=== PATIENT | female | born 1965 | race Caucasian/White ===

== ENCOUNTER 2016-05-10 17:52 | Observation (INO) | payer MEDICAID, OTHER ==
[~2016-05-10] VITALS: Ht 162.6 cm; Wt 100.0 kg
[~2016-05-10 17:52] MED LIST: BUSP10 PO; HYDR12.56 PO; LISI-363 PO
[2016-05-10 17:55] VITALS: BP_SYST 220; BP_SYST 232; BP_DIAS 107; BP_DIAS 109; PULSE 72; RESP 15; TEMP 98.2; O2SAT 98
[2016-05-10 19:09] VITALS: RESP 16; O2SAT 98
--- NOTE | 2016-05-10 19:09 | PD ---
HPI Chief Complaint: Cardiac Complaint Time Seen by Provider: 18:53 Travel History International Travel<30 days: No Contact w/Intl Traveler<30days: No Traveled to known affect area: No History of Present Illness HPI 50yo F with PMH of anxiety and HTN (not complaint with medication because of no insurance) presents to the ED with c/o midsternal chest pain with sob for 3-4 days. States pain is intermittent and nonradiating. States she had stress test in [facility] maybe 2 years ago. Pt denies any cig smoking or drugs. States she has been under a lot of stress lately. Denies any vomiting, abdominal pain , focal weakness. Pt also with frontal headache that feels like her migraine like headache while waiting to be seen. She also does not have fioricet. PFSH Past Medical History Anxiety: Yes Depression: Yes Cardiovascular Problems: Yes (HTN) Diminished Hearing: No Hypertension: Yes Musculoskeletal: Yes (tendonitis ) Migraines: Yes Tetanus Vaccination: > 5 Years Influenza Vaccination: No ?: Not LMP: 05/03/16 : 0 Para: 0 Miscarriage: 0 : 0 Past Surgical History Surgical History: No Previous Surgery Social History Alcohol Use: Yes (ocassionally) Tobacco Use: No Substance Use: No Allergies-Medications (Allergen,Severity, Reaction): Coded Allergies: Codeine (Verified Adverse Reaction, Severe, abdominal pain, 05/10/16) Reported Meds & Prescriptions Reported Meds & Active Scripts Active Review of Systems Except as stated in HPI: all other systems reviewed are Neg Physical Exam Narrative GENERAL: 50yo F in mild distress. SKIN: Focused skin assessment warm/dry. HEAD: Atraumatic. Normocephalic. EYES: Pupils equal and round. No scleral icterus. No injection or drainage. ENT: No nasal bleeding or discharge. Mucous membranes pink and moist. NECK: Trachea midline. No JVD. CARDIOVASCULAR: Regular rate and rhythm. No murmur appreciated. RESPIRATORY: No accessory muscle use. Clear to auscultation. Breath sounds equal bilaterally. GASTROINTESTINAL: Abdomen soft, non-tender, nondistended. MUSCULOSKELETAL: No obvious deformities. No clubbing. No cyanosis. No edema. NEUROLOGICAL: Awake and alert. No obvious cranial nerve deficits. Motor grossly within normal limits. Normal speech. Data Data Last Documented VS Vital Signs Date Time Temp Pulse Resp B/P Pulse Ox O2 Delivery O2 Flow Rate FiO2 05/10/16 19:11 72 16 175/81 98 Room Air 05/10/16 17:55 98.2 Orders Electrocardiogram (05/10/16 ) Basic Metabolic Panel (Bmp) (05/10/16 19:04) Ckmb (Isoenzyme) Profile (05/10/16 19:04) Complete Blood Count With Diff (05/10/16 19:04) Magnesium (Mg) (05/10/16 19:04) Prothrombin Time / Inr (Pt) (05/10/16 19:04) Act Partial Throm Time (Ptt) (05/10/16 19:04) Troponin I (05/10/16 19:04) Chest, Single Ap (05/10/16 19:04) Ecg Monitoring (05/10/16 19:04) Bilateral Bp Monitoring (05/10/16 19:04) Iv Access Insert/Monitor (05/10/16 19:04) Oximetry (05/10/16 19:04) Oxygen Administration (05/10/16 19:04) Aspirin (Aspirin) (05/10/16 19:15) Sodium Chloride 0.9% Flush (Ns Flush) (05/10/16 19:15) Ondansetron Inj (Zofran Inj) (05/10/16 19:15) Admit Order (Ed Use Only) (05/10/16 21:19) Labs Laboratory Tests Test 05/10/16 18:55 White Blood Count 8.4 TH/MM3 Red Blood Count 4.20 MIL/MM3 Hemoglobin 11.6 GM/DL Hematocrit 35.7 % Mean Corpuscular Volume 85.1 FL Mean Corpuscular Hemoglobin 27.7 PG Mean Corpuscular Hemoglobin 32.6 % Concent Red Cell Distribution Width 13.4 % Platelet Count 319 TH/MM3 Mean Platelet Volume 7.7 FL Neutrophils (%) (Auto) 57.0 % Lymphocytes (%) (Auto) 29.4 % Monocytes (%) (Auto) 10.2 % Eosinophils (%) (Auto) 2.1 % Basophils (%) (Auto) 1.3 % Neutrophils # (Auto) 4.8 TH/MM3 Lymphocytes # (Auto) 2.5 TH/MM3 Monocytes # (Auto) 0.9 TH/MM3 Eosinophils # (Auto) 0.2 TH/MM3 Basophils # (Auto) 0.1 TH/MM3 CBC Comment DIFF FINAL Differential Comment Prothrombin Time 11.1 SEC Prothromb Time International 1.0 RATIO Ratio Activated Partial 27.1 SEC Thromboplast Time Sodium Level 138 MEQ/L Potassium Level 3.5 MEQ/L Chloride Level 103 MEQ/L Carbon Dioxide Level 25.5 MEQ/L Anion Gap 10 MEQ/L Blood Urea Nitrogen 9 MG/DL Creatinine 0.76 MG/DL Estimat Glomerular Filtration 81 ML/MIN Rate Random Glucose 89 MG/DL Calcium Level 8.5 MG/DL Magnesium Level 2.3 MG/DL Total Creatine Kinase 60 U/L Troponin I 0.02 NG/ML [facility] Medical Decision Making Medical Screen Exam Complete: Yes Emergency Medical Condition: Yes Interpretation(s) EKG: NSR 67bpm. LAD. TWI V2, V3. Differential Diagnosis Anxiety vs. ACS Narrative Course 50yo F with atypical chest pain. Pt has risks factors such as uncontrolled HTN and has not had any cardiac stress test recently. Headache seems benign and started while she was waiting. No focal neurologic deficits. Improved after toradol. Labs reviewed, no leukocytosis. Troponin negative. CXR negative. Will admit to chest pain center for serial EKG and cardiac enzyme. Diagnosis Primary Impression: Chest pain Qualified Code: R07.9 - Chest pain, unspecified type Admitting Information Admitting Physician Requests: Observation Scripts Doxycycline Hyclate 100 Mg Glf612 Mg PO BID 10 Days Ref 0 Prov:Gavino House 05/11/16 Lisinopril 10 Mg Tab10 Mg PO DAILY #30 TAB Ref 0 Prov:Gavino House 05/11/16 Kaia Sharma DO May 10, 2016 19:08
[2016-05-10 19:11] VITALS: BP 175/81; PULSE 72; RESP 16; O2SAT 98
[2016-05-10] MEDS ORDERED: ASPIRIN 325 MG TAB PO ONE (19:15)
[2016-05-10] MEDS ORDERED: ONDANSETRON HCL 4 MG/2 ML VIAL IV PUSH ONE (19:15)
[2016-05-10] MEDS ORDERED: SODIUM CHLORIDE 0.9% FLUSH 10 ML FLUSH IVF PRN (19:15)
[2016-05-10 19:16] LABS: AUTOMATED NEUTROPHIL # 4.8 TH/MM3 (1.8-7.7); BASOPHIL # 0.1 TH/MM3 (0-0.2); BASOPHIL % 1.3 % (0.0-2.0); EOSINOPHIL # 0.2 TH/MM3 (0-0.4); EOSINOPHIL % 2.1 % (0.0-4.0); HEMATOCRIT 35.7 % (35.0-46.0); HEMO FLAGS DIFF FINAL; LYMPH % 29.4 % (9.0-44.0); LYMPHOCYTE # 2.5 TH/MM3 (1.0-4.8); MEAN CELL VOLUME 85.1 FL (80.0-100.0); MEAN CORPUSCULAR HEMOGLOBIN 27.7 PG (27.0-34.0); MEAN CORPUSCULAR HGB CONC 32.6 % (32.0-36.0); MONO % 10.2 % (0.0-8.0); PLATELET COUNT 319 TH/MM3 (150-450); RED CELL DISTRIBUTION WIDTH 13.4 % (11.6-17.2); WHITE BLOOD COUNT 8.4 TH/MM3 (4.0-11.0)
[2016-05-10 19:23] LABS: APTT (PATIENT) 27.1 SEC (24.3-30.1); PROTHROMBIN TIME - PATIENT 11.1 SEC (9.8-11.6)
--- NOTE | 2016-05-10 19:27 | RADRPT ---
EXAM DATE/TIME: 05/10/2016 19:18 [facility] COMPARISON: No previous studies available for comparison. INDICATIONS : Chest pain. MEDICAL HISTORY : None. SURGICAL HISTORY : None. ENCOUNTER: Initial ACUITY: 2 days PAIN SCORE: 6/10 LOCATION: middle chest. FINDINGS: A single view of the chest demonstrates the lungs to be symmetrically aerated without evidence of mas s, infiltrate or effusion. The cardiomediastinal contours are unremarkable. Osseous structures are intact. CONCLUSION: No acute disease. Cheng Joe MD on May 10, 2016 at 19:26 Board Certified Radiologist. This report was verified electronically.
[2016-05-10 19:32] LABS: BICARBONATE 25.5 MEQ/L (21.0-32.0); MAGNESIUM 2.3 MG/DL (1.5-2.5); POTASSIUM 3.5 MEQ/L (3.5-5.1)
[2016-05-10 23:28] VITALS: BP 152/76; PULSE 67; RESP 14; TEMP 98.4; O2SAT 98
[2016-05-10] MEDS ORDERED: KETOROLAC TROMETHAMINE 30 MG/ML (IVP) VIAL IV PUSH ONE (23:45)
[2016-05-11] VITALS (8 sets, daily range): BP systolic 14–175; BP diastolic 52–95; PULSE 56–66; RESP 16–18; TEMP 97.5–98.4; O2SAT 94–98
[2016-05-11] MEDS ORDERED: diphenhydrAMINE HCL 25 MG CAP PO ONE (09:30)
[2016-05-11] MEDS ORDERED: LISINOPRIL 10 MG TAB PO SCH (09:30)
[2016-05-11] MEDS ORDERED: FAMOTIDINE 20 MG TAB PO ONE (09:30)
[2016-05-11] MEDS ORDERED: REGADENOSON INJ 0.4 MG/5 ML SYR ONE (10:54)
--- NOTE | 2016-05-11 12:04 | RADRPT ---
EXAM DATE/TIME: 05/11/2016 10:11 [facility] COMPARISON: No previous studies available for comparison. INDICATIONS : Midsternal chest pain with dyspnea for 4 days. Angina. DOSE: 35 mCi Tc99m Myoview at stress. 11 mCi Tc99m Myoview at rest. 0.4 mg Lexiscan STRESS SYMPTOMS: Chest tightness. EJECTION FRACTION: 62% MEDICAL HISTORY : Hypertension. SURGICAL HISTORY : None. ENCOUNTER: Initial ACUITY: 4 - 6 days PAIN SCALE: 6/10 LOCATION: Midsternal chest TECHNIQUE: The patient underwent pharmacologic stress with infusion of prescribed dose. Continuous ECG tracing was monitored during stress. Gated SPECT imaging was performed after stress and conventional SPECT i maging was performed at rest. The examination was performed on a SPECT/CT scanner, both attenuation and non-corrected datasets were reviewed. FINDINGS: DISTRIBUTION: The maximum perfused segment at stress is in the anterior wall. PERFUSION STUDY: The pattern of perfusion at stress is within normal limits. GATED STUDY: There is intact wall motion and thickening without hypokinetic or dyskinetic segments. CONCLUSION: No reversible perfusion defects. No focal wall motion abnormalities. RISK CATEGORY: 1 - Low Risk. Brandon Gutierrez MD on May 11, 2016 at 11:58 Board Certified Radiologist. This report was verified electronically.
--- NOTE | 2016-05-11 12:09 | HHI.HP ---
HPI Primary Care Physician No Primary Care Physician Chief Complaint Chest pain History of Present Illness This is a 50-year-old female that presents to the ED via private vehicle complaining of 3 days of constant chest tightness. Nothing seems to worsen or improve it. She also has had some shortness breath intermittently with it as well. This is not exertionally related. Cannot recall prior cardiac workup. She has history of hypertension but has not taken medications or a long time saying she does not have a local doctor. Also patient is complaining of a rash to her right lower leg. She tried cortisone cream and has not helped. Review of Systems General: Patient denies fevers, chills recent, and recent travel HEENT: Patient denies headache, sore throat, difficulty swallowing. Cardiovascular: Has the chest discomfort as mentioned above. Denies sensation of heart beating rapidly or irregularly. No syncope. Denies diaphoresis. Respiratory: Intermittent shortness of breath. Denies inspirational chest discomfort. Denies coughing wheezing or hemoptysis. GI: Patient denies nausea, vomiting, diarrhea, abdominal pain, bloody stools. Musculoskeletal: Patient denies joint pain or edema. Denies calf pain or edema. Neurovascular: Patient denies numbness, tingling, weakness in extremities. Denies headache. Endocrine: Denies polyuria and polydipsia. Hematologic: Denies easy bruising. Skin: Complains of a rash to right lower leg. It itches as well. Does not recall any bites. Past Family Social History Allergies: Coded Allergies: Codeine (Verified Adverse Reaction, Severe, abdominal pain, 05/10/16) Past Medical History Hypertension and medication noncompliance. Denies hyperlipidemia and diabetes and known CAD. Past Surgical History Noncontributory. Reported Medications Reported Meds & Active Scripts Active No Active Prescriptions or Reported Medications Active Ordered Medications Current Medications Medications (Trade) Dose Ordered Sig/Delaney Route Start Time Stop Time Status Last Admin (NS Flush) 2 ml UNSCH PRN IVF 05/10/16 19:15 (Prinivil) 10 mg DAILY PO 05/11/16 09:30 05/11/16 11:49 Family History Denies family history of CAD. Social History Patient is a nonsmoker. Rarely has alcohol. Denies illicit drugs. Physical Exam Vital Signs Vital Signs Date Time Temp Pulse Resp B/P Pulse Ox O2 Delivery O2 Flow Rate FiO2 05/11/16 11:48 98.4 66 16 175/95 97 05/11/16 08:00 59 05/11/16 07:45 98.0 61 18 159/88 94 05/11/16 04:15 97.5 56 18 153/76 95 05/11/16 03:37 56 05/11/16 01:04 98.1 63 18 163/77 94 05/11/16 00:51 18 05/11/16 00:30 62 16 14/52 99 05/11/16 00:21 98 05/10/16 23:28 98.4 67 14 152/76 98 Room Air 05/10/16 19:11 72 16 175/81 98 Room Air 05/10/16 19:09 98 Room Air 05/10/16 19:09 16 98 Room Air 05/10/16 18:46 70 17 99 Room Air 05/10/16 17:55 232/109 05/10/16 17:55 98.2 72 15 220/107 98 Physical Exam GENERAL: This is a well-nourished, well-developed patient, in no apparent distress. Patient speaks in clear complete sentences. Patient is pleasant. HEENT: Head is atraumatic and normocephalic. Neck is supple without lymphadenopathy and trachea is midline. No JVD or carotid bruits. CARDIOVASCULAR: Regular rate and rhythm without murmurs, gallops, or rubs. RESPIRATORY: Clear to auscultation. Breath sounds equal bilaterally. No wheezes , rales, or rhonchi. Chest wall is nontender. No use of accessory muscles. GASTROINTESTINAL: Abdomen is nontender, nondistended. Abdomen soft. No obvious pulsatile mass or bruit. No CVA tenderness. Strong femoral pulses bilaterally. Normal bowel sounds in all quadrants. MUSCULOSKELETAL: Patient is moving upper and lower extremities freely. No calf tenderness or edema, no Homans sign. Strong pulses in upper and lower extremities. NEUROLOGICAL: Patient is alert and oriented. Cranial nerves 2-12 are grossly intact. No focal deficits and speech is clear. SKIN: There is some erythema along the distal aspect of the right lower leg. It is warm. No edema. Measures approximately 5 x 12 cm. No fluctuance or induration. Laboratory Laboratory Tests Test 05/10/16 05/10/16 05/11/16 18:55 23:20 03:02 White Blood Count 8.4 Red Blood Count 4.20 Hemoglobin 11.6 Hematocrit 35.7 Mean Corpuscular Volume 85.1 Mean Corpuscular Hemoglobin 27.7 Mean Corpuscular Hemoglobin 32.6 Concent Red Cell Distribution Width 13.4 Platelet Count 319 Mean Platelet Volume 7.7 Neutrophils (%) (Auto) 57.0 Lymphocytes (%) (Auto) 29.4 Monocytes (%) (Auto) 10.2 Eosinophils (%) (Auto) 2.1 Basophils (%) (Auto) 1.3 Neutrophils # (Auto) 4.8 Lymphocytes # (Auto) 2.5 Monocytes # (Auto) 0.9 Eosinophils # (Auto) 0.2 Basophils # (Auto) 0.1 CBC Comment DIFF FINAL Differential Comment Prothrombin Time 11.1 Prothromb Time International 1.0 Ratio Activated Partial 27.1 Thromboplast Time Sodium Level 138 Potassium Level 3.5 Chloride Level 103 Carbon Dioxide Level 25.5 Anion Gap 10 Blood Urea Nitrogen 9 Creatinine 0.76 Estimat Glomerular Filtration 81 Rate Random Glucose 89 Calcium Level 8.5 Magnesium Level 2.3 Total Creatine Kinase 60 50 53 Troponin I 0.02 0.02 0.02 Result Diagram: 05/10/16185405/10/161854 Imaging Last 24 hours Impressions Chest X-Ray 05/10/16 1904 Signed Impressions: Service Date/Time: Tuesday, May 10, 2016 19:18 - CONCLUSION: No acute disease. Cheng Joe MD Course EKGs have been sinus rhythm to sinus bradycardia, there are nonspecific T-wave changes. Assessment and Plan Assessment and Plan * Chest pain: Patient had serial cardiac enzymes and EKGs for ruling out purposes. She was seen by Dr. Hill of cardiology in the chest pain center and will undergo a Lexiscan myocardial perfusion stress test. She will likely be discharged home if her stress test were to be nonischemic. * Hypertension: Patient be given a prescription of lisinopril and she needs to fill it and uses medication. She is a follow-up with primary care physician to continue refills. * Cellulitis: Patient was given a prescription of doxycycline. Patient is agreeable to this plan. She is stable at this time. Gavino House May 11, 2016 12:09
[2016-05-11] MEDS ORDERED: DOXY100C PO (12:11)
[2016-05-11] MEDS ORDERED: LISI10TA3 PO (12:11)
--- NOTE | 2016-05-11 12:12 | HHI.DCPOC ---
Discharge Care Plan Diagnosis: (1) Chest pain (2) Hypertension (3) Cellulitis Goals to Promote Your Health * To prevent worsening of your condition and complications * To maintain your health at the optimal level Directions to Meet Your Goals Take your medications as prescribed Follow your dietary instruction Follow activity as directed Keep your appointments as scheduled Take your immunizations and boosters as scheduled If your symptoms worsen call your PCP, if no PCP go to Urgent Care Center or Emergency Room Smoking is Dangerous to Your Health. Avoid second hand smoke Call the 24-hour hour crisis hotline for domestic abuse at [facility] May 11, 2016 12:12
--- NOTE | 2016-05-11 14:28 | EKG ---
Date Performed: 05/11/2016 Time Performed: 01:58:17 PTAGE: 50 years EKG: SINUS BRADYCARDIA POSSIBLE LEFT ATRIAL ENLARGEMENT POSSIBLE LEFT VENTRICULAR HYPERTROPHY NO NSPECIFIC T-WAVE ABNORMALITY ABNORMAL ECG Since PREVIOUS TRACING , no significant change noted PREVIOUS TRACIN05/10/2016 22.54 DOCTOR: Mara Hill Interpretating Date/Time 05/11/2016 14:26:47
--- NOTE | 2016-05-11 14:29 | EKG ---
Date Performed: 05/10/2016 Time Performed: 22:54:53 PTAGE: 50 years EKG: ECTOPIC ATRIAL RHYTHM VOLTAGE CRITERIA FOR LVH INFERIOR MYOCARDIAL INFARCTION MODERATE T-WA VE ABNORMALITY, CONSIDER ANTERIOR ISCHEMIA ABNORMAL ECG Since PREVIOUS TRACING , no significant change noted PREVIOUS TRACIN05/10/2016 18.04 DOCTOR: Mara Hill Interpretating Date/Time 05/11/2016 14:27:53
--- NOTE | 2016-05-11 14:32 | EKG ---
Date Performed: 05/10/2016 Time Performed: 18:04:05 PTAGE: 50 years EKG: Sinus rhythm NONSPECIFIC T-WAVE ABNORMALITY BORDERLINE ECG Since PREVIOUS TRACING , no significant change noted PREVIOUS TRACIN01/01/2010 00.27 DOCTOR: Mara Hill Interpretating Date/Time 05/11/2016 14:30:46
--- NOTE | 2016-05-11 14:40 | TR ---
Date Performed: 05/11/2016 Time Performed: 10:49:36 DOCTOR: Mara Hill DRUG LIST: CLINICAL HISTORY: CHEST PAIN REASON FOR TEST: REASON FOR ENDING: OBSERVATION: CONCLUSION: Lexiscan stress test was performed under standard four minute protocol. Radionuclid e was injected one minute prior to ending the test. No electrocardiographic abormalities were present to suggest ischemia. Nuclear imaging and interpretation are pending. COMMENTS:
== END 2016-05-11 15:35 | disposition home or self-care (01) ==
LOC: NEPA 17:52 → NEDA 21:21 → NEPHCDU 05-11 00:33
PROVIDERS: ADMIT Internal Medicine Cardiovascular Disease; ATTEND Internal Medicine Cardiovascular Disease
DX: R07.89 Other chest pain (principal); I10 Essential (primary) hypertension; F41.9 Anxiety disorder, unspecified; F32.9 Major depressive disorder, single episode, unspecified; L03.90 Cellulitis, unspecified; Z88.5 Allergy status to narcotic agent; Z79.899 Other long term (current) drug therapy
CPT/HCPCS: 71010; 78452; 80048; 82550; 83735; 84484; 85025; 85610; 85730; 93005; 93017; 96374; 99285; A9502; G0378; J1885; J2405; J2785

== ENCOUNTER 2016-06-30 19:54 | Emergency (ER) | payer MEDICAID ==
[~2016-06-30] VITALS: Ht 162.6 cm; Wt 90.0 kg
[~2016-06-30 19:54] MED LIST changes: -BUSP10 PO; +DOXY100C PO; -HYDR12.56 PO; -LISI-363 PO; +LISI10TA3 PO
[2016-06-30 19:56] VITALS: BP 221/105; PULSE 83; RESP 15; TEMP 99.7; O2SAT 97
[2016-06-30 21:00] VITALS: BP 208/89
[2016-06-30] MEDS ORDERED: TUSSSUS2 PO (21:06)
--- NOTE | 2016-06-30 21:06 | PD ---
HPI . cold Chief Complaint: Cold / Flu Symptoms Time Seen by Provider: 20:41 Travel History International Travel<30 days: No Contact w/Intl Traveler<30days: No Traveled to known affect area: No History of Present Illness HPI Patient presents with a 5 day history of cold symptoms. She is complaining with rhinorrhea, sore throat, fever, headache, cough and chest pain associated with coughing. She states that she has not noticed any exacerbating or relieving factors. She states she has tried DayQuil, NyQuil and Tussin DM without relief of her symptoms. She is complaining of pain rated 10/10. [facility] Past Medical History Anxiety: Yes Depression: Yes Cardiovascular Problems: Yes (HTN) Diminished Hearing: No Hypertension: Yes Musculoskeletal: Yes (tendonitis ) Migraines: Yes ?: Not : 0 Para: 0 Miscarriage: 0 : 0 Social History Alcohol Use: No Tobacco Use: No Substance Use: No Allergies-Medications (Allergen,Severity, Reaction): Coded Allergies: Codeine (Verified Adverse Reaction, Severe, abdominal pain, 06/30/16) Reported Meds & Prescriptions Reported Meds & Active Scripts Active Lisinopril 10 Mg Tab 10 Mg PO DAILY Review of Systems Except as stated in HPI: all other systems reviewed are Neg General / Constitutional: Positive: Fever, Chills HENT: Positive: Sore Throat, Rhinorrhea, Congestion Cardiovascular: Positive: Chest Pain or Discomfort Respiratory: Positive: Cough Gastrointestinal: Positive: Nausea, Vomiting, Diarrhea Genitourinary: No: Urgency, Frequency, Dysuria Physical Exam Narrative GENERAL: Patient is awake and alert and in no acute distress. SKIN: Warm and dry. HEAD: Atraumatic. Normocephalic. EYES: Pupils equal and round. Extraocular movements are intact. There is no conjunctival injection or discharge. ENT: No nasal bleeding or discharge. Mucous membranes pink and moist. TMs are shiny denise with good light reflexes bilaterally. Heart no has minimal edema of the nasal mucosa with some associated clear rhinorrhea. Oropharynx has no erythema or tonsillar enlargement. There is no exudate. NECK: Trachea midline. Neck is supple with no cervical lymphadenopathy. CARDIOVASCULAR: Regular rate and rhythm. Heart sounds are normal. RESPIRATORY: No accessory muscle use. Lungs are clear with full air movement throughout. GASTROINTESTINAL: Abdomen soft, non-tender, nondistended. MUSCULOSKELETAL: No obvious deformities. No edema. NEUROLOGICAL: Awake and alert. No obvious cranial nerve deficits. Motor grossly within normal limits. Normal speech. PSYCHIATRIC: Appropriate mood and affect; insight and judgment normal. Data Data Last Documented VS Vital Signs Date Time Temp Pulse Resp B/P Pulse Ox O2 Delivery O2 Flow Rate FiO2 06/30/16 19:56 99.7 83 15 221/105 97 Room Air [facility] Medical Decision Making Medical Screen Exam Complete: Yes Emergency Medical Condition: Yes Differential Diagnosis Differential diagnosis includes but is not limited to influenza, upper respiratory infection, bronchitis, pneumonia Narrative Course Patient presents complaining with a 5 day history of cold symptoms. She has a benign exam. She will be discharged with symptomatic treatment. Diagnosis Primary Impression: Upper respiratory infection Qualified Code: J06.9 - Viral upper respiratory tract infection Patient Instructions: General Instructions, Upper Respiratory Infection (DC) Additional Instructions: I recommend the use of a Neti Pot. You may use a nasal spray such as Afrin for up to 3 days as needed for nasal congestion. You may take an [id number] antihistamine such as Zyrtec, Radha or Claritin as needed for runny secretions. You may take pseudoephedrine as needed for congestion. You will need to sign for this at the pharmacy. You may take plain Mucinex, 1200 mg twice a day as needed for thick secretions. You may take a cough syrup such as Delsym as needed for cough. Motrin as needed for fever and body aches. Throat lozenges/sprays as needed for sore throat. Warm salt water gargles for sore throat. Hot tea with lemon and honey also helps soothe a sore throat. Med/Other Pt SpecificInfo: Prescription(s) given Scripts Hydrocodone-Chlorpheniramine 12 HR Liq (Tussionex Pennkinetic Ext 12 HR Liq)10- 8 Mg/5 Ml Susp5 Ml PO Q12H PRN (COUGH AND/OR COLD SYMPTOMS) #60 ML Ref 0 Prov:Gloria Kauffman MD 06/30/16 Disposition: 01 DISCHARGE HOME Condition: Stable Gloria Kauffman MD June 30, 2016 21:06
== END 2016-06-30 21:23 | disposition home or self-care (01) ==
LOC: NEPD 19:54
DX: J06.9 Acute upper respiratory infection, unspecified (principal); B97.89 Other viral agents as the cause of diseases classified elsewhere; R50.9 Fever, unspecified; R05 Cough; R07.9 Chest pain, unspecified; I10 Essential (primary) hypertension; Z86.79 Personal history of other diseases of the circulatory system; Z87.39 Personal history of other diseases of the musculoskeletal system and connective tissue; Z86.69 Personal history of other diseases of the nervous system and sense organs; Z86.59 Personal history of other mental and behavioral disorders
CPT/HCPCS: 99283

== ENCOUNTER 2016-10-02 09:56 | Emergency (ER) | payer MEDICAID ==
[~2016-10-02] VITALS: Ht 162.6 cm; Wt 90.0 kg
[~2016-10-02 09:56] MED LIST changes: -DOXY100C PO; +TUSSSUS2 PO
[2016-10-02 09:57] VITALS: BP 189/99; PULSE 89; RESP 15; TEMP 97.9; O2SAT 99
--- NOTE | 2016-10-02 10:08 | PD ---
HPI . left knee pain Chief Complaint: Pain: Acute or Chronic Time Seen by Provider: 10:08 Travel History International Travel<30 days: No Contact w/Intl Traveler<30days: No Traveled to known affect area: No History of Present Illness HPI 51-year-old female with hypertension here with complaints of left knee pain. Patient slipped and fell hitting her left knee last night. She now has difficulty ambulating. She says pain is elicited when bending and flexing. She also has some pain on the medial and lateral sides of her knee. She denies any head injury or loss of consciousness. She rates the pain is severe when ablating. At rest the pain is tolerable. She just would like to know if something is broken. PFSH Past Medical History Anxiety: Yes Depression: Yes Cardiovascular Problems: Yes (HTN) Diminished Hearing: No Hypertension: Yes Musculoskeletal: Yes (tendonitis ) Migraines: Yes ?: Not : 0 Para: 0 Miscarriage: 0 : 0 Social History Alcohol Use: No Tobacco Use: No Substance Use: No Allergies-Medications (Allergen,Severity, Reaction): Coded Allergies: codeine (Unverified Adverse Reaction, Severe, abdominal pain, 10/02/16) Reported Meds & Prescriptions Reported Meds & Active Scripts Active Tussionex Pennkinetic Ext 12 HR Liq (Hydrocodone-Chlorpheniramine 12 HR Liq) 10- 8 Mg/5 Ml Susp 5 Ml PO Q12H PRN Lisinopril 10 Mg Tab 10 Mg PO DAILY Review of Systems General / Constitutional: No: Fever Eyes: No: Visual changes HENT: No: Headaches Cardiovascular: No: Chest Pain or Discomfort Respiratory: No: Shortness of Breath Gastrointestinal: No: Abdominal Pain Genitourinary: No: Dysuria Musculoskeletal: Positive: Pain (left knee pain ) Skin: No Rash Neurologic: No: Weakness Psychiatric: No: Depression Endocrine: No: Polydipsia Hematologic/Lymphatic: No: Easy Bruising Physical Exam Narrative GENERAL: AAO x 3, no acute distress, Well-nourished, well-developed patient. SKIN: Warm and dry. No visible rashes or bruising. HEAD: Normocephalic and atraumatic. EYES: No scleral icterus. No injection or drainage. ENT: No nasal drainage noted. Mucous membranes pink. Airway patent. NECK: Supple, trachea midline. No JVD. CARDIOVASCULAR: Regular rate and rhythm without murmurs, gallops, or rubs. RESPIRATORY: Breath sounds equal bilaterally. No accessory muscle use. No rhonchi or rales. GASTROINTESTINAL: Abdomen soft, non-tender, nondistended. EXTREMITIES: No cyanosis or edema. left knee + pain with extension and flexion, negative jazzmine and mcmuarry, + point tenderness to medial and lateral knee BACK: No obvious deformity. NEURO: CN II-12 intact, contracts intern strength normal b/l, UE and LE 5/5, no focal deficits PSYCH: AAO x 3, normal affect. Data Data Last Documented VS Vital Signs Date Time Temp Pulse Resp B/P Pulse Ox O2 Delivery O2 Flow Rate FiO2 10/02/16 10:12 16 10/02/16 09:57 97.9 89 189/99 99 Orders Knee, Complete (4vws) (10/02/16 10:12) [facility] Medical Decision Making Medical Screen Exam Complete: Yes Emergency Medical Condition: Yes Medical Record Reviewed: Yes Differential Diagnosis knee sprain, knee fracture, meniscus injury of left knee Narrative Course 51 yr old female with HTN here with c/o left knee pain s/p fall. On exam she does have some limited ROM. I will check xray to r/o fracture. I do not suspect there will be one. Discussed results with patient. No acute fracture. Clarence wrap and crutches provided. recommend outpatient f/u with PCP. Diagnosis Primary Impression: Left knee sprain Qualified Code: S83.92XA - Sprain of left knee, unspecified ligament, initial encounter Patient Instructions: General Instructions Additional Instructions: Rest the affected area as much as possible. Ice this area for 15-20 minutes at a time. You can do this every hour or as much as tolerated. Keep this area compressed (clarence bandage) as tolerated. Elevate this area. Use ibuprofen as needed for pain and inflammation. Please return to emergency department if your symptoms return or worsen. Follow up with your primary care provider. Take medications as prescribed. Med/Other Pt SpecificInfo: Prescription(s) given Disposition: 01 DISCHARGE HOME Condition: Stable Susan Ross Oct 02, 2016 10:08
--- NOTE | 2016-10-02 10:47 | RADRPT ---
EXAM DATE/TIME: 10/02/2016 10:27 [facility] COMPARISON: No previous studies available for comparison. INDICATIONS : Left knee pain, Patient fell MEDICAL HISTORY : None. SURGICAL HISTORY : None. ENCOUNTER: Initial ACUITY: 1 day PAIN SCORE: 7/10 LOCATION: Left Knee FINDINGS: Four view examination of the left knee demonstrates no evidence of fracture or dislocation. Bony min eralization is normal. The articular surfaces are intact. Mild osteoarthritis. Small sessile osteoch ondroma proximal tibia The suprapatellar soft tissues have a normal configuration. CONCLUSION: 1. No acute fracture. 2. Small osteochondroma proximal tibia. Denver Vaca MD on October 02, 2016 at 10:45 Board Certified Radiologist. This report was verified electronically.
== END 2016-10-02 11:00 | disposition home or self-care (01) ==
LOC: NEPD 09:56
DX: S83.92XA Sprain of unspecified site of left knee, initial encounter (principal); I10 Essential (primary) hypertension; Z86.59 Personal history of other mental and behavioral disorders; Z86.79 Personal history of other diseases of the circulatory system; Z87.39 Personal history of other diseases of the musculoskeletal system and connective tissue; Z86.69 Personal history of other diseases of the nervous system and sense organs; W01.0XXA Fall on same level from slipping, tripping and stumbling without subsequent striking against object, initial encounter
CPT/HCPCS: 73564; 99283; E0113

== ENCOUNTER 2016-11-10 18:14 | Inpatient (IN) | payer MEDICAID ==
[~2016-11-10] VITALS: Ht 160 cm; Wt 93.1 kg
[2016-11-10 18:32] VITALS: BP 217/89; PULSE 73; RESP 18; TEMP 99; O2SAT 98
[2016-11-10] MEDS ORDERED: SODIUM CHLORIDE 0.9% FLUSH 10 ML FLUSH IV FLUSH PRN ×2 (20:00→22:00)
[2016-11-10] MEDS ORDERED: MORPHINE SULFATE 4 MG/ML INJ IV PUSH ONE (20:00)
--- NOTE | 2016-11-10 20:04 | PD ---
HPI Chief Complaint: Injury Time Seen by Provider: 19:54 Travel History International Travel<30 days: No Contact w/Intl Traveler<30days: No Traveled to known affect area: No History of Present Illness HPI 51-year-old female here for evaluation of right knee pain after a slip and fall landing onto her right knee. She is also complaining of some pain in her right ankle as well as her right thigh. She denies head injury or LOC. Pain and right knee is severe, 10 out of 10, constant, worse with movements. Initially she was able to ambulate and bear weight, however she is no longer able to do so because of the pain. She denies any other injuries. PFSH Past Medical History Anxiety: Yes Depression: Yes Cardiovascular Problems: Yes (HTN) Diminished Hearing: No Hypertension: Yes Musculoskeletal: Yes (tendonitis ) Migraines: Yes ?: Not : 0 Para: 0 Miscarriage: 0 : 0 Past Surgical History Surgical History: No Previous Surgery Social History Alcohol Use: No Tobacco Use: No Substance Use: No Allergies-Medications (Allergen,Severity, Reaction): Coded Allergies: codeine (Unverified Adverse Reaction, Severe, abdominal pain, 10/02/16) Reported Meds & Prescriptions Reported Meds & Active Scripts Active Lisinopril 10 Mg Tab 10 Mg PO DAILY Review of Systems Except as stated in HPI: all other systems reviewed are Neg Physical Exam Narrative GENERAL: Well-developed, well-nourished, awake, alert, GCS 15, no apparent distress. SKIN: Focused skin assessment warm/dry. No lacerations or abrasions. HEAD: Atraumatic. Normocephalic. EYES: Pupils equal and round. No scleral icterus. No injection or drainage. ENT: Mucous membranes pink and moist. NECK: Trachea midline. No JVD. CARDIOVASCULAR: Regular rate and rhythm. Bilateral dorsalis pedis pulses are brisk and equal. RESPIRATORY: No accessory muscle use. MUSCULOSKELETAL: Right anterior knee with significant edema and diffuse tenderness with limited range of motion secondary to pain. Right ankle is mildly tender over the medial and lateral malleolus without obvious deformity or edema. Right thigh is also mildly tender with mild edema distally. The rest of her joints and extremities are without deformity, without tenderness, with normal range of motion. NEUROLOGICAL: Awake and alert. No obvious cranial nerve deficits. Motor grossly within normal limits. Normal speech. PSYCHIATRIC: Appropriate mood and affect; insight and judgment normal. Data Data Last Documented VS Vital Signs Date Time Temp Pulse Resp B/P (MAP) Pulse Ox O2 Delivery O2 Flow Rate FiO2 11/10/16 20:16 98 Room Air 11/10/16 20:16 66 16 11/10/16 18:32 99.0 Orders Orders Femur (Ap & Lat/2vws) (11/10/16 ) Ankle, Complete ([id number]) (11/10/16 ) Morphine Inj (Morphine Inj) (11/10/16 20:00) Basic Metabolic Panel (Bmp) (11/10/16 20:00) Complete Blood Count With Diff (11/10/16 20:00) Prothrombin Time / Inr (Pt) (11/10/16 20:00) Act Partial Throm Time (Ptt) (11/10/16 20:00) Iv Access Insert/Monitor (11/10/16 20:00) Ecg Monitoring (11/10/16 20:00) Oximetry (11/10/16 20:00) Sodium Chloride 0.9% Flush (Ns Flush) (11/10/16 20:00) Knee, Complete (4vws) (11/10/16 ) ^ Knee Immobilizer (11/10/16 21:47) Labs Laboratory Tests Test 11/10/16 20:12 White Blood Count 11.5 TH/MM3 Red Blood Count 4.49 MIL/MM3 Hemoglobin 12.4 GM/DL Hematocrit 37.9 % Mean Corpuscular Volume 84.3 FL Mean Corpuscular Hemoglobin 27.5 PG Mean Corpuscular Hemoglobin Concent 32.7 % Red Cell Distribution Width 14.8 % Platelet Count 335 TH/MM3 Mean Platelet Volume 7.9 FL Neutrophils (%) (Auto) 68.4 % Lymphocytes (%) (Auto) 21.7 % Monocytes (%) (Auto) 8.5 % Eosinophils (%) (Auto) 0.6 % Basophils (%) (Auto) 0.8 % Neutrophils # (Auto) 7.9 TH/MM3 Lymphocytes # (Auto) 2.5 TH/MM3 Monocytes # (Auto) 1.0 TH/MM3 Eosinophils # (Auto) 0.1 TH/MM3 Basophils # (Auto) 0.1 TH/MM3 CBC Comment DIFF FINAL Differential Comment Prothrombin Time 10.8 SEC Prothromb Time International Ratio 1.0 RATIO Activated Partial Thromboplast Time 26.3 SEC Blood Urea Nitrogen 14 MG/DL Creatinine 0.91 MG/DL Random Glucose 92 MG/DL Calcium Level 8.9 MG/DL Sodium Level 138 MEQ/L Potassium Level 3.8 MEQ/L Chloride Level 106 MEQ/L Carbon Dioxide Level 25.4 MEQ/L Anion Gap 7 MEQ/L Estimat Glomerular Filtration Rate 65 ML/MIN MDM Medical Decision Making Medical Screen Exam Complete: Yes Emergency Medical Condition: Yes Differential Diagnosis Right knee fracture versus dislocation versus ligamentous injury, right ankle fracture versus sprain Narrative Course Vital signs reviewed. CBC is unremarkable. BMP is unremarkable. Coags are normal. Right ankle x-ray: Intact right ankle, moderate to large heel spur Right femur x-ray: Intact right femur. Right knee x-ray: Mildly comminuted slightly displaced fracture of the mid/lower pole of the patella with a large joint effusion. Patient is unable to hold her leg in extension against gravity. Case discussed with on-call orthopedist Dr. Bernal who recommends the patient be admitted for operative repair of right patellar fracture. Patient was made aware of this and is amenable to this plan. Case discussed with hospitalist Dr. Freitas who will admit the patient to her service. Diagnosis Primary Impression: Closed fracture of right patella Qualified Codes: S82.041A - Displaced comminuted fracture of right patella, initial encounter for closed fracture Additional Impression: Fall Qualified Codes: W19.XXXA - Unspecified fall, initial encounter Admitting Information Admitting Physician Requests: Admit Abilio Hill MD Nov 10, 2016 20:04
[2016-11-10 20:16] VITALS: BP 203/96; PULSE 66; RESP 16; O2SAT 98
[2016-11-10 20:41] LABS: AUTOMATED NEUTROPHIL # 7.9 TH/MM3 (1.8-7.7); BASOPHIL # 0.1 TH/MM3 (0-0.2); BASOPHIL % 0.8 % (0.0-2.0); EOSINOPHIL # 0.1 TH/MM3 (0-0.4); EOSINOPHIL % 0.6 % (0.0-4.0); HEMATOCRIT 37.9 % (35.0-46.0); HEMO FLAGS DIFF FINAL; LYMPH % 21.7 % (9.0-44.0); LYMPHOCYTE # 2.5 TH/MM3 (1.0-4.8); MEAN CELL VOLUME 84.3 FL (80.0-100.0); MEAN CORPUSCULAR HEMOGLOBIN 27.5 PG (27.0-34.0); MEAN CORPUSCULAR HGB CONC 32.7 % (32.0-36.0); MONO % 8.5 % (0.0-8.0); NEUT % 68.4 % (16.0-70.0); PLATELET COUNT 335 TH/MM3 (150-450); RED BLOOD COUNT 4.49 MIL/MM3 (4.00-5.30); RED CELL DISTRIBUTION WIDTH 14.8 % (11.6-17.2); WHITE BLOOD COUNT 11.5 TH/MM3 (4.0-11.0)
[2016-11-10 20:55] LABS: BICARBONATE 25.4 MEQ/L (21.0-32.0); POTASSIUM 3.8 MEQ/L (3.5-5.1)
[2016-11-10 20:56] LABS: APTT (PATIENT) 26.3 SEC (24.3-30.1); PROTHROMBIN TIME - PATIENT 10.8 SEC (9.8-11.6)
--- NOTE | 2016-11-10 21:11 | RADRPT ---
EXAM DATE/TIME: 11/10/2016 20:35 [facility] COMPARISON: No previous studies available for comparison. INDICATIONS : Right knee pain after fall on tile. MEDICAL HISTORY : None. SURGICAL HISTORY : None. ENCOUNTER: Initial ACUITY: 1 day PAIN SCORE: 10/10 LOCATION: Right patella. FINDINGS: There is a mildly comminuted, slightly displaced/ fracture of the mid to lower pole of the p atella. I don't see significant step off or incongruity of the articular surface. Other bones of the right knee are intact. There is a large suprapatellar joint effusion. CONCLUSION: Mildly comminuted slightly displaced fracture of the mid/lower pole of the patella and a large joint effusion. Aly Benitez MD on November 10, 2016 at 21:09 Board Certified Radiologist. This report was verified electronically.
--- NOTE | 2016-11-10 21:12 | RADRPT ---
EXAM DATE/TIME: 11/10/2016 20:36 [facility] COMPARISON: No previous studies available for comparison. INDICATIONS : Right femur pain after fall on tile. MEDICAL HISTORY : None. SURGICAL HISTORY : None. ENCOUNTER: Initial ACUITY: 1 day PAIN SCORE: 8/10 LOCATION: Right femur. FINDINGS: Two view examination of the right femur demonstrates no evidence of fracture or dislocation. Bony mi neralization is normal. The soft tissue structures are intact. CONCLUSION: Intact right femur. Aly Benitez MD on November 10, 2016 at 21:11 Board Certified Radiologist. This report was verified electronically.
--- NOTE | 2016-11-10 21:13 | RADRPT ---
EXAM DATE/TIME: 11/10/2016 20:41 [facility] COMPARISON: No previous studies available for comparison. INDICATIONS : Right ankle pain after fall on tile. MEDICAL HISTORY : None. SURGICAL HISTORY : None. ENCOUNTER: Initial ACUITY: 1 day PAIN SCORE: 8/10 LOCATION: Right ankle. FINDINGS: Three view exam was performed of the right ankle. The bony structures are in normal alignment. No e vidence of fracture, dislocation, or soft tissue swelling. The ankle mortise is intact. No radiopaq ue foreign bodies are seen. Bony mineralization is normal. Incidentally seen moderate to large heel spur. There is also a moderate size enthesophyte at the Achi lles insertion. CONCLUSION: 1. Intact right ankle. 2. Moderate to large heel spur and moderate size enthesophyte of distal Achilles. Aly Benitez MD on November 10, 2016 at 21:11 Board Certified Radiologist. This report was verified electronically.
[2016-11-10] MEDS ORDERED: NALOXONE HCL 0.4 MG/ML AMP IV PUSH PRN (22:00)
[2016-11-10] MEDS ORDERED: ONDANSETRON HCL 4 MG/2 ML VIAL IVP PRN (22:00)
[2016-11-10] MEDS: SODIUM CHLOR 0.9% 1000 ML INJ 1,000 ML IV SCH (22:15)
[2016-11-10 22:22] VITALS: BP 187/104; PULSE 68; RESP 18; TEMP 98.6; O2SAT 99
[2016-11-10] MEDS: MORPHINE SULFATE 4 MG/ML INJ IV PUSH PRN (23:10)
[2016-11-11 00:29] VITALS: BP 168/88; PULSE 64; RESP 18; TEMP 98.8; O2SAT 99
[2016-11-11] MEDS: MORPHINE SULFATE 4 MG/ML INJ IV PUSH PRN (04:48)
[2016-11-11 04:53] VITALS: BP 195/82; PULSE 66; RESP 18; TEMP 97.5; O2SAT 97
--- NOTE | 2016-11-11 05:22 | HHI.HP ---
HPI Service [facility] Primary Care Physician No Primary Care Physician Admission Diagnosis closed right patellar fracture, slip and fall Diagnoses: Chief Complaint: right knee pain Travel History International Travel<30 Days: No Contact w/Intl Traveler <30 Da: No Traveled to Known Affected Are: No History of Present Illness 51 y/o female with a history of HTN, anxiety and depression presented tot he ED after a fall at home. Patient states she slipped on a water that was on the kitchen floor and landed on her right knee, and twisted her right ankle. She states the pain is intermittent and sharp, 6/10, worse with movement but better with morphine. She denies hitting her head or LOC. She states she has been out of her lisinopril for a few weeks and does take some of her brothers periodically. She has no PCP due to the type of insurance she has. She denies any chest pain, sob, fever or chills. Review of Systems Except as stated in HPI: all other systems reviewed are Neg Past Family Social History Past Medical History HTN Anxiety Depression Past Surgical History Patient denies any surgical history Reported Medications Reported Meds & Active Scripts Active Lisinopril 10 Mg Tab 10 Mg PO DAILY Allergies: Coded Allergies: codeine (Unverified Adverse Reaction, Severe, abdominal pain, 10/02/16) Active Ordered Medications Current Medications Medications (Trade) Dose Ordered Sig/Delaney Route Start Time Stop Time Status Last Admin (NS Flush) 2 ml UNSCH PRN IV FLUSH 11/10/16 20:00 Sodium Chloride 1,000 ml @ 100 mls/hr Q10H IV 11/10/16 22:00 11/10/16 22:15 (NS Flush) 2 ml UNSCH PRN IV FLUSH 11/10/16 22:00 (NS Flush) 2 ml BID IV FLUSH 11/11/16 09:00 (Zofran Inj) 4 mg Q6H PRN IVP 11/10/16 22:00 (Narcan Inj) 0.4 mg UNSCH PRN IV PUSH 11/10/16 22:00 (Morphine Inj) 2 mg Q3H PRN IV PUSH 11/10/16 22:00 11/11/16 04:48 Family History Mom: Heart disease, DM Dad: Heart disease Social History Tobacco use: Denies Alcohol use: Socially Illicit drug use: Denies Physical Exam Vital Signs Vital Signs Date Time Temp Pulse Resp B/P (MAP) Pulse Ox O2 Delivery O2 Flow Rate FiO2 11/11/16 04:53 97.5 66 18 195/82 (119) 97 11/11/16 00:29 98.8 64 18 168/88 (114) 99 11/10/16 22:22 98.6 68 18 187/104 (131) 99 11/10/16 22:19 11/10/16 20:16 98 Room Air 11/10/16 20:16 66 16 203/96 (131) 98 Room Air 11/10/16 18:32 99.0 73 18 217/89 (131) 98 Room Air Physical Exam GENERAL: This is a well-nourished, well-developed patient, in no apparent distress. SKIN: No rashes, ecchymoses or lesions. Cool and dry. HEAD: Atraumatic. Normocephalic. EYES: Pupils equal round and reactive. ENT: Nose without bleeding, purulent drainage or septal hematoma. Airway patent. NECK: Trachea midline. No JVD CARDIOVASCULAR: Regular rate and rhythm without murmurs, gallops, or rubs. RESPIRATORY: Clear to auscultation. Breath sounds equal bilaterally. No wheezes , rales, or rhonchi. GASTROINTESTINAL: Abdomen soft, non-tender, nondistended. MUSCULOSKELETAL: Right knee tenderness with edema. No calf tenderness. NEUROLOGICAL: Awake and alert. Motor and sensory grossly within normal limits. Normal speech. Laboratory Laboratory Tests Test 11/10/16 20:12 White Blood Count 11.5 Red Blood Count 4.49 Hemoglobin 12.4 Hematocrit 37.9 Mean Corpuscular Volume 84.3 Mean Corpuscular Hemoglobin 27.5 Mean Corpuscular Hemoglobin Concent 32.7 Red Cell Distribution Width 14.8 Platelet Count 335 Mean Platelet Volume 7.9 Neutrophils (%) (Auto) 68.4 Lymphocytes (%) (Auto) 21.7 Monocytes (%) (Auto) 8.5 Eosinophils (%) (Auto) 0.6 Basophils (%) (Auto) 0.8 Neutrophils # (Auto) 7.9 Lymphocytes # (Auto) 2.5 Monocytes # (Auto) 1.0 Eosinophils # (Auto) 0.1 Basophils # (Auto) 0.1 CBC Comment DIFF FINAL Differential Comment Prothrombin Time 10.8 Prothromb Time International Ratio 1.0 Activated Partial Thromboplast Time 26.3 Blood Urea Nitrogen 14 Creatinine 0.91 Random Glucose 92 Calcium Level 8.9 Sodium Level 138 Potassium Level 3.8 Chloride Level 106 Carbon Dioxide Level 25.4 Anion Gap 7 Estimat Glomerular Filtration Rate 65 Result Diagram: 11/10/16201111/10/162011 Imaging Last Impressions Knee X-Ray 11/10/16 0000 Signed Impressions: Service Date/Time: Thursday, November 10, 2016 20:35 - CONCLUSION: Mildly comminuted slightly displaced fracture of the mid/lower pole of the patella and a large joint effusion. Aly Benitez MD Femur X-Ray 11/10/16 0000 Signed Impressions: Service Date/Time: Thursday, November 10, 2016 20:36 - CONCLUSION: Intact right femur. Aly Benitez MD Ankle X-Ray 11/10/16 0000 Signed Impressions: Service Date/Time: Thursday, November 10, 2016 20:41 - CONCLUSION: 1. Intact right ankle. 2. Moderate to large heel spur and moderate size enthesophyte of distal Achilles. MD Radha Casoni VTE Risk Assessment Radhai VTE Risk Assessment: No/Low Risk (score <= 1) Caprini Risk Assessment Model Point Value = 1 Point Value = 2 Point Value = 3 Point Value = 5 Age 41-60 Minor surgery BMI > 25 kg/m2 Swollen legs Varicose veins or History of unexplained or recurrent spontaneous Oral contraceptives or hormone replacement Sepsis (< 1 month) Serious lung disease, including pneumonia (< 1 month) Abnormal pulmonary function Acute myocardial infarction Congestive heart failure (< 1 month) History of inflammatory bowel disease Medical patient at bed rest Age 61-74 Arthroscopic surgery Major open surgery (> 45 min) Laparoscopic surgery (> 45 min) Malignancy Confined to bed (> 72 hours) Immobilizing plaster cast Central venous access Age >= 75 History of VTE Family history of VTE Factor V Leiden Prothrombin [id number] Lupus anticoagulant Anticardiolipin antibodies Elevated serum homocysteine Heparin-induced thrombocytopenia Other congenital or acquired thrombophilia Stroke (< 1 month) Elective arthroplasty Hip, pelvis, or leg fracture Acute spinal cord injury (< 1 month) Prophylaxis Regimen Total Risk Factor Score Risk Level Prophylaxis Regimen 0-1 Low Early ambulation 2 Moderate Order ONE of the following: *Sequential Compression Device (SCD) *Heparin 5000 units SQ BID 3-4 Higher Order ONE of the following medications: *Heparin 5000 units SQ TID *Enoxaparin/Lovenox 40 mg SQ daily (WT < 150 kg, CrCl > 30 mL/min) *Enoxaparin/Lovenox 30 mg SQ daily (WT < 150 kg, CrCl > 10-29 mL/min) *Enoxaparin/Lovenox 30 mg SQ BID (WT < 150 kg, CrCl > 30 mL/min) AND/OR *Sequential Compression Device (SCD) 5 or more Highest Order ONE of the following medications: *Heparin 5000 units SQ TID (Preferred with Epidurals) *Enoxaparin/Lovenox 40 mg SQ daily (WT < 150 kg, CrCl > 30 mL/min) *Enoxaparin/Lovenox 30 mg SQ daily (WT < 150 kg, CrCl > 10-29 mL/min) *Enoxaparin/Lovenox 30 mg SQ BID (WT < 150 kg, CrCl > 30 mL/min) AND *Sequential Compression Device (SCD) Assessment and Plan Problem List: (1) Closed fracture of right patella ICD Code: S82.001A - Unspecified fracture of right patella, initial encounter for closed fracture Status: Acute (2) Hypertension ICD Code: I10 - Essential (primary) hypertension Status: Chronic Assessment and Plan 51 y/o female with a history of HTN, anxiety and depression presented tot he ED after a fall at home. Closed fracture of right patella Knee x ray reviewed and shows a mildly comminuted slightly displaced fracture of the mid/lower pole of the patella and a large joint effusion -Consult orthopedic, surgery in am -NPO, IVF for hydration -Pain management with IV morphine -Cont CKS, Ice as needed to right knee HTN, chronic: Resume home medications, clonidine prn DVT prophylaxis: SCDs Discussed Condition With Patient Physician Certification 2 Midnight Certification Type: Admission for Inpatient Services Order for Inpatient Services The services are ordered in accordance with Medicare regulations or non- Medicare payer requirements, as applicable. In the case of services not specified as inpatient-only, they are appropriately provided as inpatient services in accordance with the 2-midnight benchmark. Estimated LOS (days): 2 days is the estimated time the patient will need to remain in the hospital, assuming treatment plan goals are met and no additional complications. Post-Hospital Plan: Home Problem Qualifiers (1) Closed fracture of right patella: Qualified Codes: S82.041A - Displaced comminuted fracture of right patella, initial encounter for closed fracture (2) Hypertension: Qualified Codes: I10 - Essential (primary) hypertension Christina Norton Nov 11, 2016 05:22
[2016-11-11] MEDS ORDERED: cloNIDine HCL 0.1 MG TAB PO PRN (05:45)
--- NOTE | 2016-11-11 06:19 | PD.CONS ---
cc: Tere Bernal MD HPI Service Orthopedic Surgeons Consult Requested By Reason for Consult Right closed patella fracture Primary Care Physician No Primary Care Physician Admission Diagnosis closed right patellar fracture, slip and fall Diagnoses: (1) Closed fracture of right patella Diagnosis: Principal (2) Hypertension Diagnosis: Secondary Chief Complaint: Right knee pain after fall History of Present Illness 51yo F s/p slip and fall while cooking dinner last night. She states she was able to finish cooking dinner but after she sat down, she was in a significant amount of pain and unable to ambulate comfortably. Denies numbness or tingling. Reports mild right ankle and hip pain but this has significantly improved. She denies any weakness. Denies fevers, chills, CP, SOB. Review of Systems Constitutional: DENIES: Fever Endocrine: DENIES: Polyuria Eyes: DENIES: Blurred vision Ears, nose, mouth, throat: DENIES: Running Nose Respiratory: DENIES: Cough Cardiovascular: DENIES: Chest pain Gastrointestinal: DENIES: Abdominal pain Genitourinary: DENIES: Urinary incontinence Musculoskeletal: COMPLAINS OF: Joint pain, Joint Swelling Integumentary: DENIES: Rash Hematologic/lymphatic: DENIES: Bruising Immunologic/allergic: DENIES: Eczema Neurologic: DENIES: Abnormal gait Psychiatric: DENIES: Anxiety Past Family Social History Past Medical History HTN Anxiety Depression Past Surgical History Patient denies any surgical history Allergies: Coded Allergies: codeine (Unverified Adverse Reaction, Severe, abdominal pain, 10/02/16) Active Ordered Medications Current Medications Medications (Trade) Dose Ordered Sig/Delaney Route Start Time Stop Time Status Last Admin (NS Flush) 2 ml UNSCH PRN IV FLUSH 11/10/16 20:00 Sodium Chloride 1,000 ml @ 100 mls/hr Q10H IV 11/10/16 22:00 11/10/16 22:15 (NS Flush) 2 ml UNSCH PRN IV FLUSH 11/10/16 22:00 (NS Flush) 2 ml BID IV FLUSH 11/11/16 09:00 (Zofran Inj) 4 mg Q6H PRN IVP 11/10/16 22:00 (Narcan Inj) 0.4 mg UNSCH PRN IV PUSH 11/10/16 22:00 (Morphine Inj) 2 mg Q3H PRN IV PUSH 11/10/16 22:00 11/11/16 04:48 (Catapres) 0.1 mg Q6H PRN PO 11/11/16 05:45 (Prinivil) 10 mg DAILY PO 11/11/16 09:00 Reported Meds & Active Scripts Active Lisinopril 10 Mg Tab 10 Mg PO DAILY Family History Mom: Heart disease, DM Dad: Heart disease Social History Tobacco use: Denies Alcohol use: Socially Illicit drug use: Denies Physical Exam Vital Signs Vital Signs Date Time Temp Pulse Resp B/P (MAP) Pulse Ox O2 Delivery O2 Flow Rate FiO2 11/11/16 04:53 97.5 66 18 195/82 (119) 97 11/11/16 00:29 98.8 64 18 168/88 (114) 99 11/10/16 22:22 98.6 68 18 187/104 (131) 99 11/10/16 22:19 11/10/16 20:16 98 Room Air 11/10/16 20:16 66 16 203/96 (131) 98 Room Air 11/10/16 18:32 99.0 73 18 217/89 (131) 98 Room Air Physical Exam Awake, alert NAD Normocephalic Normal affect Non-labored respirations Normal rate RLE: significant effusion in right knee with TTP. Unable to assess knee ROM due to pain. -logroll. Full ROM of right ankle. +DF/PF, EHL/FHL. Sensation intact. DP palpable BUE and LLE: without erythema, TTP or swelling. Full active ROM and strength throughout. Normal sensation. Palpable radial and DP pulses. No appreciable inguinal lymphadenopathy Laboratory Laboratory Tests Test 11/10/16 20:12 White Blood Count 11.5 Red Blood Count 4.49 Hemoglobin 12.4 Hematocrit 37.9 Mean Corpuscular Volume 84.3 Mean Corpuscular Hemoglobin 27.5 Mean Corpuscular Hemoglobin Concent 32.7 Red Cell Distribution Width 14.8 Platelet Count 335 Mean Platelet Volume 7.9 Neutrophils (%) (Auto) 68.4 Lymphocytes (%) (Auto) 21.7 Monocytes (%) (Auto) 8.5 Eosinophils (%) (Auto) 0.6 Basophils (%) (Auto) 0.8 Neutrophils # (Auto) 7.9 Lymphocytes # (Auto) 2.5 Monocytes # (Auto) 1.0 Eosinophils # (Auto) 0.1 Basophils # (Auto) 0.1 CBC Comment DIFF FINAL Differential Comment Prothrombin Time 10.8 Prothromb Time International Ratio 1.0 Activated Partial Thromboplast Time 26.3 Blood Urea Nitrogen 14 Creatinine 0.91 Random Glucose 92 Calcium Level 8.9 Sodium Level 138 Potassium Level 3.8 Chloride Level 106 Carbon Dioxide Level 25.4 Anion Gap 7 Estimat Glomerular Filtration Rate 65 Result Diagram: 11/10/16201111/10/162011 Imaging Right knee XR with transverse patella fracture with very minimal displacement with acceptable alignment of joint surface Right ankle and hip XR without evidence of acute fracture Assessment & Plan Problem List: (1) Closed fracture of right patella ICD Codes: S82.001A - Unspecified fracture of right patella, initial encounter for closed fracture Status: Acute Qualifiers: Qualified Codes: S82.044A - Nondisplaced comminuted fracture of right patella, initial encounter for closed fracture Assessment and Plan Closed right minimally displaced patella fracture -Discussed with patient the option of non-op versus operative care. At this time the patient has significant amount of pain due to her hemarthrosis and is unable to attempt a straight leg raise to evaluate extensor mechanism. I offered the patient to follow-up next week for re-evaluation but she states she is in too much pain. I did discuss the option of possible arthrocentesis to possible help with the pain from her hemarthrosis. I explained that it is likely to recur, but she is interested in attempting an aspiration as she is uncomfortable. I did explain to the patient that given her fracture and joint surface is acceptable in alignment and position, I would like to attempt non- operative management if at all possible. -Will attempt aspiration this morning with hopefully plan for non-operative management. Tere Bernal MD Nov 11, 2016 06:19
[2016-11-11 07:45] LABS: AUTOMATED NEUTROPHIL # 6.3 TH/MM3 (1.8-7.7); BASOPHIL # 0.1 TH/MM3 (0-0.2); BASOPHIL % 0.9 % (0.0-2.0); EOSINOPHIL # 0.1 TH/MM3 (0-0.4); EOSINOPHIL % 0.9 % (0.0-4.0); HEMATOCRIT 37.1 % (35.0-46.0); HEMO FLAGS DIFF FINAL; LYMPH % 28.3 % (9.0-44.0); MEAN CELL VOLUME 85.2 FL (80.0-100.0); MEAN CORPUSCULAR HEMOGLOBIN 27.9 PG (27.0-34.0); MEAN CORPUSCULAR HGB CONC 32.7 % (32.0-36.0); MONO % 9.9 % (0.0-8.0); PLATELET COUNT 306 TH/MM3 (150-450); RED BLOOD COUNT 4.35 MIL/MM3 (4.00-5.30); RED CELL DISTRIBUTION WIDTH 15.2 % (11.6-17.2); WHITE BLOOD COUNT 10.5 TH/MM3 (4.0-11.0)
[2016-11-11 08:00] VITALS: BP 163/93; PULSE 65; RESP 18; TEMP 97.5; O2SAT 92
[2016-11-11] MEDS: SODIUM CHLOR 0.9% 1000 ML INJ 1,000 ML IV SCH ×2 (08:00→18:00)
[2016-11-11 08:24] LABS: BICARBONATE 24.8 MEQ/L (21.0-32.0); POTASSIUM 3.6 MEQ/L (3.5-5.1)
[2016-11-11] MEDS ORDERED: LISINOPRIL 10 MG TAB PO SCH (09:00)
[2016-11-11] MEDS ORDERED: SODIUM CHLORIDE 0.9% FLUSH 10 ML FLUSH IV FLUSH SCH (09:00)
[2016-11-11] MEDS ORDERED: oxyCODONE/ACETAMINOPHEN 5 MG/325 MG TAB PO PRN ×2 (10:00)
[2016-11-11 11:37] VITALS: BP 179/82; PULSE 64; RESP 18; TEMP 97.4; O2SAT 97
[2016-11-11 12:20] VITALS: BP 166/89; PULSE 59
[2016-11-11] MEDS ORDERED: ACETAMINOPHEN/HYDROcodone 325 MG/5 MG TAB PO PRN ×2 (12:30)
[2016-11-11] MEDS ORDERED: NORC5TAB PO (12:32)
--- NOTE | 2016-11-11 15:03 | HHI.PR ---
Subjective Remarks Patient complaining about upset stomach after taking clonidine and Percocet. She stated that she is a very sensitive stomach and always reacts to medication. She stated that Percocet causes her to be nauseous. Patient states she does better with Narco. Denies any chest pain, palpitation, lightheadedness or dizziness. Nurse is at the bedside during the interview. Patient has not been seen by physical therapist yet. Objective Vitals Vital Signs Date Time Temp Pulse Resp B/P (MAP) Pulse Ox O2 Delivery O2 Flow Rate FiO2 11/11/16 12:20 59 166/89 (114) 11/11/16 11:37 97.4 64 18 179/82 (114) 97 11/11/16 08:00 97.5 65 18 163/93 (116) 92 11/11/16 04:53 97.5 66 18 195/82 (119) 97 11/11/16 00:29 98.8 64 18 168/88 (114) 99 11/10/16 22:22 98.6 68 18 187/104 (131) 99 11/10/16 22:19 11/10/16 20:16 98 Room Air 11/10/16 20:16 66 16 203/96 (131) 98 Room Air 11/10/16 18:32 99.0 73 18 217/89 (131) 98 Room Air I/O 11/10/16 11/10/16 11/10/16 11/11/16 11/11/16 11/11/16 07:00 15:00 23:00 07:00 15:00 23:00 Intake Total 240 ml 360 ml Balance 240 ml 360 ml Intake Oral 240 ml 360 ml # Voids 1 1 # Bowel Movements 0 0 Result Diagram: 11/11/16 0640 11/11/16 0640 Objective Remarks GENERAL: in NAD CARDIOVASCULAR: Regular rate and rhythm without murmurs, gallops, or rubs. RESPIRATORY: Breath sounds equal bilaterally. No accessory muscle use. GASTROINTESTINAL: Abdomen soft, non-tender, nondistended. MUSCULOSKELETAL: Right leg and knee immobilizer. BACK: Nontender without obvious deformity. No CVA tenderness. Medications and IVs Current Medications Morphine Sulfate (Morphine Inj) 2 mg ONCE ONCE IV PUSH Last administered on t 20:15; Start 11/10/16 at 20:00; Stop 11/11/16 at 09:54; Status DC Sodium Chloride (NS Flush) 2 ml UNSCH PRN IV FLUSH FLUSH AFTER USING IV ACCESS ; Start 11/10/16 at 20:00; Stop 11/11/16 at 10:17; Status DC Sodium Chloride 1,000 ml @ 100 mls/hr Q10H IV Last administered on 11/10/16 22:15; Start 11/10/16 at 22:00 Sodium Chloride (NS Flush) 2 ml UNSCH PRN IV FLUSH FLUSH AFTER USING IV ACCESS ; Start 11/10/16 at 22:00 Sodium Chloride (NS Flush) 2 ml BID IV FLUSH Last administered on 11/11/16 09: 50; Start 11/11/16 at 09:00 Ondansetron HCl (Zofran Inj) 4 mg Q6H PRN IVP NAUSEA OR VOMITING; Start at 22:00 Naloxone HCl (Narcan Inj) 0.4 mg UNSCH PRN IV PUSH SEE LABEL COMMENTS; Start at 22:00 Morphine Sulfate (Morphine Inj) 2 mg Q3H PRN IV PUSH SEE LABEL COMMENTS Last administered on 11/11/16 04:48; Start 11/10/16 at 22:00; Stop 11/11/16 at 09:54 ; Status DC Clonidine (Catapres) 0.1 mg Q6H PRN PO SBP>160, DBP>90 Last administered on 11:13; Start 11/11/16 at 05:45 Lisinopril (Prinivil) 10 mg DAILY PO Last administered on 11/11/16 09:50; Start 11/11/16 at 09:00 Oxycodone/ Acetaminophen (Percocet 5-325 Mg) 1 tab Q4H PRN PO pain 1-7; Start 11/11/16 at 10:00; Stop 11/11/16 at 12:31; Status DC Oxycodone/ Acetaminophen (Percocet 5-325 Mg) 2 tab Q4H PRN PO pain 8-10 Last administered on 11/11/16 10:57; Start 11/11/16 at 10:00; Stop 11/11/16 at 12:31 ; Status DC Acetaminophen/ Hydrocodone Bitart ([place] 5-325 Mg) 1 tab Q4H PRN PO pain 1-7; Start 11/11/16 at 12:30 Acetaminophen/ Hydrocodone Bitart ([place] 5-325 Mg) 2 tab Q4H PRN PO pain 8-10 ; Start 11/11/16 at 12:30 A/P Problem List: (1) Closed fracture of right patella ICD Code: S82.001A - Unspecified fracture of right patella, initial encounter for closed fracture Status: Acute (2) Hypertension ICD Code: I10 - Essential (primary) hypertension Status: Chronic Assessment and Plan 51 y/o female with a history of HTN, anxiety and depression presented tot he ED after a fall at home. Closed fracture of right patella Knee x ray reviewed and shows a mildly comminuted slightly displaced fracture of the mid/lower pole of the patella and a large joint effusion -Patient was admitted and seen by orthopedic. -Per orthopedic attempted right knee aspiration was done but unable to aspirate due to hemarthrosis had clotted. Patient wanted nonoperative management. She was instructed she could be WBAT in [place]. Also to keepKI in place and right knee extended. She was told to avoid flexion of the right knee. Patient to follow-up with orthopedics next week. Chronic hypertension, uncontrollable -Per patient her baseline blood pressure is systolic blood pressure in the 160s. That her blood pressure is always high. -Patient is at her baseline. Continue home regimen. Encourage patient to follow-up with her primary care physician to slowly adjust her blood pressure medication since she has been chronically running high. Discharge Planning If patient does well later today and PT has seen patient for recommendations she can be discharged today. Problem Qualifiers (1) Closed fracture of right patella: Qualified Codes: S82.044A - Nondisplaced comminuted fracture of right patella, initial encounter for closed fracture (2) Hypertension: Qualified Codes: I10 - Essential (primary) hypertension Senait Maria MD Nov 11, 2016 15:03
[2016-11-11 16:00] VITALS: BP 119/68; PULSE 59; RESP 18; TEMP 97; O2SAT 93
[2016-11-11] MEDS ORDERED: WALKER WHEELS/F1 MIS (16:51)
--- NOTE | 2016-11-11 16:54 | HHI.DCPOC ---
Discharge Care Plan Diagnosis: (1) Closed fracture of right patella (2) Hypertension Goals to Promote Your Health * To prevent worsening of your condition and complications * To maintain your health at the optimal level Directions to Meet Your Goals Take your medications as prescribed Follow your dietary instruction Follow activity as directed Keep your appointments as scheduled Take your immunizations and boosters as scheduled If your symptoms worsen call your PCP, if no PCP go to Urgent Care Center or Emergency Room Smoking is Dangerous to Your Health. Avoid second hand smoke Call the 24-hour hour crisis hotline for domestic abuse at Senait Maria MD Nov 11, 2016 16:54
--- NOTE | 2016-11-11 16:54 | HHI.DS ---
Discharge Summary Admission Date Nov 10, 2016 at 21:53 Admitting Diagnosis closed right patellar fracture, slip and fall (1) Closed fracture of right patella ICD Code: S82.001A - Unspecified fracture of right patella, initial encounter for closed fracture Diagnosis: Principal Status: Acute (2) Hypertension ICD Code: I10 - Essential (primary) hypertension Diagnosis: Secondary Status: Chronic Brief History - From Admission 51 y/o female with a history of HTN, anxiety and depression presented tot he ED after a fall at home. Patient states she slipped on a water that was on the kitchen floor and landed on her right knee, and twisted her right ankle. She states the pain is intermittent and sharp, 6/10, worse with movement but better with morphine. She denies hitting her head or LOC. She states she has been out of her lisinopril for a few weeks and does take some of her brothers periodically. She has no PCP due to the type of insurance she has. She denies any chest pain, sob, fever or chills. CBC/BMP: 11/11/16 0640 11/11/16 0640 Significant Findings Laboratory Tests Test 11/10/16 20:12 11/11/16 06:40 White Blood Count 11.5 TH/MM3 (4.0-11.0) Monocytes (%) (Auto) 8.5 % (0.0-8.0) 9.9 % (0.0-8.0) Neutrophils # (Auto) 7.9 TH/MM3 (1.8-7.7) Monocytes # (Auto) 1.0 TH/MM3 (0-0.9) 1.0 TH/MM3 (0-0.9) Estimat Glomerular Filtration Rate 65 ML/MIN (>89) PE at Discharge GENERAL: in NAD CARDIOVASCULAR: Regular rate and rhythm without murmurs, gallops, or rubs. RESPIRATORY: Breath sounds equal bilaterally. No accessory muscle use. GASTROINTESTINAL: Abdomen soft, non-tender, nondistended. MUSCULOSKELETAL: Right leg and knee immobilizer. BACK: Nontender without obvious deformity. No CVA tenderness. Pt Condition on Discharge: Good Discharge Disposition: Discharge Home Discharge Instructions DIET: Follow Instructions for: Heart Healthy Diet Activities you can perform: Regular-No Restrictions, Weight Bearing as Juvenal Other Activity Instructions: as directed by Orthopedic surgeon Senait Maria MD Nov 11, 2016 16:54
[2016-11-11] MEDS ORDERED: CALCIUM CARBONATE 500 MG CHEWABLE TAB CHEW ONE (17:00)
== END 2016-11-11 19:08 | disposition home or self-care (01) | DRG 563 ==
LOC: NEPD 18:14 → NEDA 21:53 → N06B 22:24
PROVIDERS: ADMIT Family Medicine; ATTEND Family Medicine
PROC: 0S9C3ZZ Drainage of Right Knee Joint, Percutaneous Approach (ICD-10-PCS; principal; 2016-11-11)
DX: S82.041A Displaced comminuted fracture of right patella, initial encounter for closed fracture (principal); I10 Essential (primary) hypertension; F32.9 Major depressive disorder, single episode, unspecified; F41.9 Anxiety disorder, unspecified; W01.0XXA Fall on same level from slipping, tripping and stumbling without subsequent striking against object, initial encounter; M25.461 Effusion, right knee; S83.91XA Sprain of unspecified site of right knee, initial encounter; K30 Functional dyspepsia; Y92.000 Kitchen of unspecified non-institutional (private) residence as the place of occurrence of the external cause
CPT/HCPCS: 73552; 73564; 73610; 80048; 85025; 85610; 85730; 96374; J2270; J7030; L1830